=== PATIENT | female | born 2000 | race Two or more races ===

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

== ENCOUNTER 2020-02-23 08:41 | Outpatient (CLI) | payer OTHER | END 2020-02-23 09:01 | disposition home or self-care (01) | LOC: SONOGRAMA 08:41 | PROVIDERS: ATTEND Obstetrics & Gynecology | DX: N94.89 Other specified conditions associated with female genital organs and menstrual cycle (principal) ==

== ENCOUNTER 2020-02-23 10:10 | Outpatient (CLI) | payer OTHER | END 2020-02-23 15:00 | disposition home or self-care (01) | LOC: LAB 10:10 | PROVIDERS: ATTEND Obstetrics & Gynecology | DX: N97.0 Female infertility associated with anovulation (principal); N91.1 Secondary amenorrhea ==

== ENCOUNTER 2020-07-08 10:39 | Emergency (ER) | payer OTHER ==
[~2020-07-08] VITALS: Ht 160 cm; Wt 61.2 kg
[2020-07-08] MEDS ORDERED: SPRINTEC 28 DA1 EACH PO (10:57)
[2020-07-08] MEDS ORDERED: AMOX1TAB5 PO (11:17)
== END 2020-07-08 11:37 | disposition home or self-care (01) ==
LOC: EMR PED 10:39
DX: S00.571A Other superficial bite of lip, initial encounter (principal); W54.0XXA Bitten by dog, initial encounter; Y93.89 Activity, other specified; Y92.89 Other specified places as the place of occurrence of the external cause; Y99.8 Other external cause status

== ENCOUNTER 2020-10-01 10:17 | Emergency (ER) | payer OTHER ==
[~2020-10-01] VITALS: Ht 157.5 cm; Wt 61.2 kg
[~2020-10-01 10:17] MED LIST changes: +AMOX1TAB5 PO; +SPRINTEC 28 DA1 EACH PO
== END 2020-10-01 15:24 ==
LOC: EMR PED 10:17 → ER 10:17
DX: R05 Cough (principal)

== ENCOUNTER 2021-03-26 16:02 | Emergency (ER) | payer OTHER ==
[~2021-03-26] VITALS: Ht 160 cm; Wt 67.1 kg
== END 2021-03-26 18:17 | disposition home or self-care (01) ==
LOC: EMR PED 16:02
DX: B34.9 Viral infection, unspecified (principal); Z11.52 Encounter for screening for COVID-19

== ENCOUNTER 2021-11-21 11:55 | Outpatient (CLI) | payer OTHER | END 2021-11-21 12:27 | disposition home or self-care (01) | LOC: SONOGRAMA 11:55 | PROVIDERS: ATTEND Internal Medicine Gastroenterology | DX: R10.9 Unspecified abdominal pain (principal) ==

== ENCOUNTER → 2022-04-19 | Emergency (ER) | payer OTHER ==
[~2022-04-19] VITALS: Ht 160 cm; Wt 70.8 kg
== END | disposition home or self-care (01) ==
LOC: ER 09:00
DX: B09 Unspecified viral infection characterized by skin and mucous membrane lesions (principal)

== ENCOUNTER 2022-05-10 09:22 | Outpatient (CLI) | payer OTHER | END 2022-05-10 09:32 | disposition home or self-care (01) | LOC: RAD 09:22 | PROVIDERS: ATTEND Orthopaedic Surgery | DX: M25.562 Pain in left knee (principal) ==

== ENCOUNTER 2022-06-06 07:59 | Outpatient (CLI) | payer OTHER | END 2022-06-06 08:12 | disposition home or self-care (01) | LOC: MRI 07:59 | PROVIDERS: ATTEND Orthopaedic Surgery | DX: M25.562 Pain in left knee (principal); M23.92 Unspecified internal derangement of left knee | CPT/HCPCS: 73718 ==

== ENCOUNTER → 2022-06-06 09:35 | Outpatient (CLI) | payer OTHER | END | disposition home or self-care (01) | LOC: LAB 09:35 | PROVIDERS: ATTEND Orthopaedic Surgery | DX: E55.9 Vitamin D deficiency, unspecified (principal); M85.9 Disorder of bone density and structure, unspecified ==

== ENCOUNTER 2022-06-11 08:08 | Outpatient (CLI) | payer OTHER | END 2022-06-11 09:06 | disposition home or self-care (01) | LOC: LAB 08:08 | PROVIDERS: ATTEND Orthopaedic Surgery | DX: D64.89 Other specified anemias (principal); E88.89 Other specified metabolic disorders; D68.8 Other specified coagulation defects; N39.0 Urinary tract infection, site not specified; A49.02 Methicillin resistant Staphylococcus aureus infection, unspecified site; Z76.89 Persons encountering health services in other specified circumstances; I10 Essential (primary) hypertension; I49.9 Cardiac arrhythmia, unspecified ==

== ENCOUNTER 2023-12-16 22:41 | Emergency (ER) | payer OTHER ==
[~2023-12-16] VITALS: Ht 157.5 cm; Wt 72.6 kg
[2023-12-17] MEDS ORDERED: HYDROCODONE/CHLORPHEN P-STIREX 5 ML ML PO STA (00:59)
[2023-12-17 01:26] LABS: HEMATOCRIT 35.1 % (36.0-45.00); MEAN CELL VOLUME 91.7 fL (80.00-100.00); MEAN CORPUSCULAR HEMOGLOBIN 31.5 pg (27.00-32.0); MEAN CORPUSCULAR HGB CONC 34.3 g/dl (32.0-36.0); PLATELET COUNT 159 K/uL (150-450); RED BLOOD COUNT 3.83 M/uL (4.00-6.00); RED CELL DISTRIBUTION WIDTH 12.8 % (11.5-14.5)
[2023-12-17 01:29] LABS: HEMOGLOBIN 12.1 g/dL (12.0-15.00)
== END 2023-12-17 02:33 | disposition home or self-care (01) ==
LOC: ER 22:41
DX: J06.9 Acute upper respiratory infection, unspecified (principal); Z20.822 Contact with and (suspected) exposure to COVID-19